=== PATIENT | female | born 1990 | race Caucasian/White ===

== ENCOUNTER 2021-06-20 09:07 | Outpatient (REF) | payer OTHER, SELFPAY ==
[2021-06-20 11:52] LABS: Hematocrit 40.2 % (37.0-47.0); Hemoglobin 13.6 g/dl (12.0-16.0); Mean Corpuscular HGB Conc 33.8 g/dl (31.0-35.0); Mean Corpuscular Hemoglobin 32.4 pg (27.0-33.0); Mean Corpuscular Volume 95.7 fL (80.0-98.0); Mean Platelet Volume 10.6 fL (9.4-12.3); Platelet Count 264 X10*3/uL (160-400); Red Cell Distribution Width 11.5 % (11.0-16.0); White Blood Count 6.2 X10*3/uL (4.8-10.8)
[2021-06-20 12:19] LABS: Alanine Aminotransferase 15 U/L (0-31); Alkaline Phosphatase 49 U/L (39-117); Anion Gap 11 (12-20); Aspartate Amino Transferase 19 U/L (5-31); Bilirubin Total 0.5 mg/dL (0.0-1.0); Blood Urea Nitrogen 12 mg/dL (9-16); Calcium 9.1 mg/dL (8.4-10.2); Carbon Dioxide 25 mmol/L (22-29); Chloride 107 mmol/L (96-108); Cholesterol 194 mg/dL; Estimated Glomerular Filt Rate > 60; Glucose Fasting 86 mg/dL (60-99); HDL Cholesterol 65 mg/dL; LDL Cholesterol Calculated 120 mg/dl; Sodium 139 mmol/L (135-145); Total Protein 6.7 g/dL (6.5-8.0); Triglycerides 47 mg/dL
[2021-06-20 12:24] LABS: TSH reflex Free T4 2.02 uIU/mL (0.32-4.0)
== END 2021-06-20 09:08 | disposition home or self-care (01) ==
LOC: HO.WFDLDS 09:07
PROVIDERS: Visit Provider Hospitalist
DX: Z00.00 Encounter for general adult medical examination without abnormal findings (principal)
CPT/HCPCS: 36415; 80053; 80061; 84443; 85027

== ENCOUNTER 2021-12-02 13:23 | Outpatient (REF) | payer OTHER, SELFPAY | END 2021-12-02 13:24 | disposition home or self-care (01) | LOC: HO.LNP 13:23 | PROVIDERS: Visit Provider Nurse Practitioner Family | DX: N39.0 Urinary tract infection, site not specified (principal) | CPT/HCPCS: 87086 ==

== ENCOUNTER 2022-07-10 08:38 | Outpatient (REF) | payer OTHER, SELFPAY ==
[2022-07-10 13:00] LABS: Cholesterol 235 mg/dL; HDL Cholesterol 54 mg/dL; LDL Cholesterol Calculated 166 mg/dl; Triglycerides 78 mg/dL
== END 2022-07-10 08:39 | disposition home or self-care (01) ==
LOC: HO.WFDLDS 08:38
PROVIDERS: Visit Provider Hospitalist
DX: Z00.00 Encounter for general adult medical examination without abnormal findings (principal)
CPT/HCPCS: 36415; 80061

== ENCOUNTER 2023-08-25 15:34 | Outpatient (AMB) | payer OTHER, SELFPAY ==
[2023-08-25 15:36] VITALS: BP 112/70; PULSE 84; O2SAT 98; BMI 27.6
--- NOTE | 2023-08-25 15:36 | A.OFFPC_ITS ---
Vital Signs 08/25/23 15:36 Height 5 ft 1 in Weight 146 lb BMI 27.6 BP 112/70 Blood Pressure Location Lt brachial Position Sitting Pulse 84 Pulse Source Pulse Oximeter Pulse Oximetry (%) 98 Oxygen Delivery Method Room Air Intake Visit Reasons: Annual PE / Transfer Of Care Annia Duncan Intake Note: Patient is here for her physical today. Patient states she is concerned about hormone changes, due to rash on her face for 6 months. Allergies No Known Allergies Allergy (Verified 08/25/23 15:40) Tobacco use date assessed: 08/25/23 Dental Screening Dental Screen Date: 08/25/23 Did you have a dental visit in the last 12 months?: Yes Did you have a dental problem in the last 6 months where you did not have access to dental care?: No Was dental information given to patient?: Patient has dentist HPI Annual PE / Transfer Of Care Annia Duncan HPI Details Transfer of Care Prior PCP:? Last office visit/CPE: Acute issue(s): Acne affected?by?hormonal?cycles PMHx: HLD, Uterine polyps & AUB - now s/p hysterectomy SurgHx: Hysterectomy. FHx: Dad: Brain Cancer. Mom: Unknown. Grandmother: Diabetes SocHx: Nonsmoker. EtOH none. MJ none. No drugs. Gets plenty of exercise - walks the dog frequently. [facility] Surgical History H/O: hysterectomy History of breast implant Family History Father Cancer Social History Housing: House Patient Tobacco Use Status: Never used Tobacco e-Cigarette/Vaping Use: Never Used Current occupational status: employed Cognitive needs: No Hearing needs: No Vision needs: No Questionnaire PHQ-9 Over the last 2 weeks, how often have you been bothered by any of the following problems? 1. Little interest or pleasure in doing things: not at all 2. Feeling down, depressed, or hopeless: not at all 3. Trouble falling or staying asleep, or sleeping too much: not at all 4. Feeling tired or having little energy: not at all 5. Poor appetite or overeating: not at all 6. Feeling bad about yourself - or that you are a failure or have let yourself or your family down: not at all 7. Trouble concentrating on things, such as reading the newspaper or watching television: not at all 8. Moving or speaking so slowly that other people could have noticed. Or the opposite - being so fidgety or restless that you have been moving around a lot more than usual: not at all 9. Thoughts that you would be better off or of hurting yourself in some way: not at all Total score: 0 Depression Screening Interpretation: Negative Depression Screening Done: Yes 55509 - PHQ-9 Billing: Yes Source: Developed by Drs. Piotr Demarco, Tere Choi, Dustin Maher and colleagues, with an educational laura from [employer] Thrive Questionnaire Date Thrive assessed: 08/25/23 I am a: Patient What is your living situation today?: I have a steady place to live Within the past 12 months, did the food you bought not last and you didn't have the money to get more?: Never true Within the past 12 months, did you worry whether your food would run out before you got money to buy more?: Never true Do you have trouble paying for medicines?: No Do you have trouble getting transportation to medical appointments?: No Do you have trouble paying your heating and electricity bill?: No Do you have trouble taking care of your child, family member or friend?: No Do you have trouble with day-to-day activities such as bathing, preparing meals, shopping, managing finances, etc.?: No Are you currently unemployed and looking for a job?: No Are you interested in more education?: Yes THRIVE Score: 0 AUDIT C Alcohol Use Questionnaire (AUDIT-C) 1. How often do you have a drink containing alcohol?: Never 3. How often do you have six or more drinks on one occasion?: Never Total Score: 0 CAMPOS-7 AMB Questionnaire CAMPOS-7 Date CAMPOS - 7 assessed: 08/25/23 Feeling nervous, anxious, or on edge: 0 = Not at all Not being able to stop or control worryin = Not at all Worrying too much about different things: 0 = Not at all Trouble relaxin = Not at all Being so restless that it is hard to sit still: 0 = Not at all Becoming easily annoyed or irritable: 0 = Not at all Feeling afraid as if something awful might happen: 0 = Not at all Total CAMPOS-7 score (0-4 normal; 5-9 mild; 10-14 moderate; 15-21 severe): 0 Source: Developed by Drs. Piotr Demarco, Tere Choi, Dustin Maher and colleagues, with an educational laura from [employer] CAMPOS-7 Assessment Billing CAMPOS-7 Assessment Tool: CAMPOS-7 Assessment 57733 Review of Systems Const Denies chills, Denies fatigue, Denies fever(s), Denies headache(s) and Denies weakness Eyes Denies change in vision ENT Denies dizziness, Denies headache(s), Denies hearing loss, Denies nasal congestion, Denies sinus pain, Denies sinus pressure and Denies sore throat Card Denies chest pain, Denies lightheadedness, Denies dyspnea and Denies other (palpitations) Resp Denies cough, Denies dyspnea and Denies wheezing GI Denies abdominal pain, Denies melena, Denies hematochezia, Denies change in bowel habits, Denies dyspepsia and Denies nausea Denies hematuria and Denies dysuria Musc Denies abnormal gait, Denies myalgias, Denies arthralgias, Denies numbness and Denies tingling Skin/Breast Denies rash, Denies unusual bruising and Denies wounds Neuro Denies abnormal gait, Denies dizziness, Denies headache(s), Denies memory loss, Denies numbness, Denies Sensory deficit (Neuro), Denies tingling and Denies weakness Psych Denies anxiety, Denies depression and Denies memory loss Endo Denies cold intolerance, Denies fatigue, Denies heat intolerance, Denies polydipsia and Denies polyuria Fabian/Lymph Denies easy bleeding and Denies easy bruising Aller/Immun Denies wheezing Physical exam (Primary Care) Vital Signs: Last Vital Signs Pulse 84 08/25/23 15:36 BP 112/70 08/25/23 15:36 Pulse Ox 98 08/25/23 15:36 Oxygen Delivery Method Room Air 08/25/23 15:36 BMI result Body Mass Index 27.6 Tobacco/Smoking Status: Tobacco use Status Tobacco use date assessed 08/25/23 08/25/23 15:48 Patient Tobacco Use Status Never used Tobacco 08/25/23 15:48 e-Cigarette/Vaping Use Never Used 08/25/23 15:48 PHQ-9: PHQ-9 Score PHQ-9: Total score 0 08/25/23 15:52 Depression Screening Interpretation: Negative Thrive Assessment: Date of Thrive Assessment Date Thrive assessed 08/25/23 08/25/23 15:48 Const General: no acute distress, well developed, alert and awake Nutritional Appearance: well nourished Orientation/consciousness: patient oriented x3 HENMT Head: Yes normocephalic and Yes atraumatic Ears: hearing grossly normal bilaterally and TM's normal bilaterally General nose exam: Normal external nose present and Normal nares present Mouth: Normal oral and palatal mucosa present and moist mucous membranes Teeth and gingiva: dentition normal Throat: Yes posterior oropharynx normal Eyes General: appearance normal, both eyes and all related structures Pupils: Equal, round and reactive pupils present and Pupil accommodation reflex normal EOM: EOMs intact bilaterally Neck Neck: Yes normal visual inspection, Yes no lymphadenopathy and Yes trachea midline Thyroid: Thyroid normal Carotids: no bruits Lymphatic: no lymphadenopathy noted Chest Chest palpation & inspection: normal inspection of the chest Resp Effort & Inspection: normal respiratory effort Auscultation: clear to auscultation bilaterally Cardio Rate: regular rate Rhythm: regular rhythm Heart sounds: S1 normal heart sound present, S2 normal heart sound present, no gallops, no murmurs and no rubs Bruits: no abdominal aortic bruits and no carotid bruits GI Palpation (GI): No Abdominal aortic bruit present, Soft to palpation, nontender, No hepatosplenomegaly present and No Rebound tenderness present Auscultation: normal bowel sounds General: Yes no CVA tenderness Back/Spine/Pelvis Back: no CVA tenderness Cervical Spine: cervical ROM normal and No Cervical spine tenderness Thoracic/Lumbar Spine: thoraco-lumbar ROM normal, No pain with thoraco-lumbar ROM, No thoracic spinal tenderness and No lumbar spinal tenderness Skin Lesions: no lesions Rashes: no rashes Trauma: no lacerations or abrasions Wounds: no wounds Nails: normal Neuro General: patient oriented x3 Cranial nerves: Yes Equal, round and reactive pupils present Cognition (Neuro): normal cognition Gait exam (Neuro): Normal gait present Motor exam (neuro): 5/5 motor strength present throughout Sensory Exam: No Sensory deficit (Neuro) Deep tendon reflexes (DTR's): Right patellar reflex intensity grade: 2+ and Left patellar reflex intensity grade: 2+ Extrem General: Yes normal to inspection and No edema Psych Appearance: grossly normal Affect: normal affect Attitude: cooperative Thought process: Normal thought process present Assessment and Plan Assessment & Plan (1) Adult general medical exam: Code(s): Z00.00 - Encounter for general adult medical examination without abnormal f indings Plan: 33-year-old?female?presents?as?transfer?from?[facility]?for?complete?physical?exam Encouraged?healthy?diet?with?active?lifestyle?and?plenty?of?exercise (2) Acne: Code(s): L70.9 - Acne, unspecified Plan: Moderately?severe?cystic?acne She?has?an?appointment?with?dermatology?but?it?is?still?months?out She?has?tried?cleaned?gel She?does?note?that?acne?worsens?with?her?menstrual?cycle?and?she?was?wondering?a bout?spironolactone. T his?may?be?a?good?option?although?she?has?had?a?low?blood?pressure?at?a?prior?vi sit.??Usually?blood?pressures?are?okay. Will?try?Differin Could?consider?spironolactone?in?the?future.??However?she?is?g oing?to?be?seen?dermatology?and?she?can?also?discuss?treatment?options?with?Derm (3) High cholesterol: Code(s): E78.00 - Pure hypercholesterolemia, unspecified Plan: History?of?hyperlipidemia?and?she?is?taking?atorvastatin Continue?statin?and?check?lipid (4) H/O: hysterectomy: Code(s): Z90.710 - Acquired absence of both cervix and uterus Plan: Still?has?ovaries Stable Orders: Orders Complete Blood Count Auto Diff Today Z00.00 - Encounter for general adult medical examination without abnormal findings Microalbumin, Random (w Creat) Today I10 - Essential (primary) hypertension Comprehensive [place]. Panel Fast Today Z00.00 - Encounter for general adult medical examination without abnormal findings Lipid Panel Today Z00.00 - Encounter for general adult medical examination without abnormal findings TSH reflex Free T4 Today Z00.00 - Encounter for general adult medical examination without abnormal findings UA and rflx microscopic Today Z00.00 - Encounter for general adult medical examination without abnormal findings Medications: New adapalene 0.1% (Differin) 1 appl topical BEDTIME 30 days 45 grams 2RF Coding Level of Care Code Est Pt Level 3 (43698) Est Pt Prev Care 18-39y(10513) Diagnoses Adult general medical exam Z00.00 Acne L70.9 High cholesterol E78.00 H/O: hysterectomy Z90.710 Additional Codes CAMPOS-7 Assessment Billing - CAMPOS-7 Assessment Tool: CAMPOS-7 Assessment 67068 ([id number])
== END 2023-08-25 16:22 | disposition home or self-care (01) ==
PROVIDERS: PCP Family Medicine; Visit Provider Family Medicine
DX: Z00.00 Encounter for general adult medical examination without abnormal findings (principal); L70.9 Acne, unspecified; E78.00 Pure hypercholesterolemia, unspecified; Z90.710 Acquired absence of both cervix and uterus
CPT/HCPCS: 99213; 99395

== ENCOUNTER 2023-08-30 08:28 | Outpatient (REF) | payer OTHER, SELFPAY ==
[2023-08-30 11:20] LABS: MANUAL DIFF FLAG NO
[2023-08-30 11:30] LABS: Basophils Percent Auto 0.4 % (0-2); Eosinophils Absolute Auto 0.1 X10*3/uL (0.0-0.4); Hematocrit 39.5 % (37.0-47.0); Hemoglobin 13.2 g/dl (12.0-16.0); Imm Gran Abs Auto 0.02 X10*3/uL (0.00-0.03); Imm Gran Pct Auto 0.4 % (0.0-0.4); Lymphocytes Absolute Auto 1.7 X10*3/uL (1.2-4.9); Lymphocytes Percent Auto 33.9 % (20-40); Mean Corpuscular HGB Conc 33.4 g/dl (31.0-35.0); Mean Corpuscular Hemoglobin 32.4 pg (27.0-33.0); Mean Corpuscular Volume 96.8 fL (80.0-98.0); Mean Platelet Volume 10.7 fL (9.4-12.3); Monocytes Absolute Auto 0.4 X10*3/uL (0.1-1.2); Monocytes Percent Auto 8.5 % (2-11); Neutrophils Absolute Auto 2.8 x10*3/uL (2.0-8.3); Neutrophils Percent Auto 55.8 % (45-73); Platelet Count 277 X10*3/uL (160-400); Red Blood Count 4.08 X10*6/uL (4.20-5.50)
[2023-08-30 12:15] LABS: Appearance Urine Clear; Color Urine Dark Yellow; Glucose Urine UA Negative (Negative); Leukocyte Esterase Urine Negative (Negative); Nitrite Urine Negative (Negative); PH 5.5 (5.0-9.0); Urine Blood Negative (Negative); Urine Ketones Negative (Negative); Urine Protein Negative (Neg-Trace)
[2023-08-30 12:50] LABS: Creatinine Urine 196.02 mg/dL; Microalbum/Creatinine Ratio Ur 3.5 ug/mg cr (<30)
[2023-08-30 13:10] LABS: Alanine Aminotransferase 22 U/L (0-31); Alkaline Phosphatase 50 U/L (39-117); Anion Gap 8 (12-20); Aspartate Amino Transferase 21 U/L (5-31); Bilirubin Total 0.5 mg/dL (0.0-1.0); Blood Urea Nitrogen 11 mg/dL (9-16); Carbon Dioxide 28 mmol/L (22-29); Chloride 106 mmol/L (96-108); Cholesterol 136 mg/dL (<200); Estimated Glomerular Filt Rate > 60; Glucose Fasting 85 mg/dL (60-99); HDL Cholesterol 53 mg/dL (>40); LDL Cholesterol Calculated 74 mg/dL (<100); Potassium 3.7 mmol/L (3.3-5.1); Sodium 138 mmol/L (135-145); Total Protein 6.7 g/dL (6.5-8.0); Triglycerides 46 mg/dL (<150)
[2023-08-30 13:31] LABS: TSH reflex Free T4 1.07 uIU/mL (0.32-4.0)
[2023-09-02 08:49] LABS: TS Negative Control Passed; TS Panel A 0; TS Panel B 0; TS Positive Control Passed; TSpotTB Negative (Negative)
== END 2023-08-30 08:29 | disposition home or self-care (01) ==
LOC: HO.WFDLDS 08:28
PROVIDERS: Visit Provider Family Medicine
DX: Z00.00 Encounter for general adult medical examination without abnormal findings (principal); Z11.1 Encounter for screening for respiratory tuberculosis; I10 Essential (primary) hypertension
CPT/HCPCS: 36415; 80053; 80061; 81003; 82043; 82570; 84443; 85025; 86481

== ENCOUNTER → 2023-09-16 13:25 | Outpatient (AMB) | payer OTHER, SELFPAY ==
--- NOTE | 2023-09-16 13:20 | MHC.PC.OV ---
Intake Visit Reasons: f/u CPE-labs via telemedicine Allergies No Known Allergies Allergy (Verified 09/16/23 13:21) Tobacco use date assessed: 09/16/23 Dental Screening Dental Screen Date: 08/25/23 HPI f/u CPE-labs via telemedicine HPI Details 33 y/o female presents to f/u CPE-labs via telemedicine. Labs were drawn 08/30/23. Reviewed labs with pt. Triglycerides 46. TC 136. LDL 74. HDL 53. PFSH Surgical History (Reviewed 09/16/23 @ 13:23 by Maria Luisa Harrison [facility]) History of breast implant H/O: hysterectomy Family History Father Cancer Social History Housing: House Patient Tobacco Use Status: Never used Tobacco e-Cigarette/Vaping Use: Never Used Current occupational status: employed Cognitive needs: No Hearing needs: No Vision needs: No Questionnaire Thrive Questionnaire Date Thrive assessed: 08/25/23 CAMPOS-7 AMB Questionnaire CAMPOS-7 Date CAMPOS - 7 assessed: 08/25/23 Source: Developed by Drs. Piotr Demarco, Tere Choi, Dustin Maher and colleagues, with an educational laura from [employer]. Review of Systems Const Denies chills, Denies fatigue, Denies fever(s), Denies headache(s) and Denies weakness ENT Denies dizziness and Denies headache(s) Card Denies dyspnea Resp Denies cough, Denies dyspnea, Denies wheezing and Denies other (shortness of breath) Musc Denies numbness and Denies tingling Neuro Denies dizziness, Denies headache(s), Denies numbness, Denies tingling and Denies weakness Psych Denies anxiety and Denies depression Endo Denies fatigue Aller/Immun Denies wheezing Physical exam (Primary Care) Tobacco/Smoking Status: Tobacco use Status Tobacco use date assessed 09/16/23 09/16/23 13:22 Patient Tobacco Use Status Never used Tobacco 09/16/23 13:22 e-Cigarette/Vaping Use Never Used 09/16/23 13:22 Thrive Assessment: Date of Thrive Assessment Date Thrive assessed 08/25/23 09/16/23 13:22 Telehealth Telehealth Telehealth Platform: Telephone Location of provider rendering services: practice address Location of patient: address on file Patient Identification confirmed using: Name, : Yes Telehealth method: voice only Patient verbally consented to treatment: Yes Patient verbally consented to billing insurance company: Yes Patient informed of any privacy concerns related to visit: Yes Minutes spent on Phone/Video with Pt.: 6 Assessment and Plan Assessment & Plan (1) High cholesterol: Code(s): E78.00 - Pure hypercholesterolemia, unspecified Plan: Cholesterol?significantly?improved?on?atorvastatin. Lipids?all?with?in?normal?range She?will?continue?atorvastatin (2) Screening for cervical cancer: Code(s): Z12.4 - Encounter for screening for malignant neoplasm of cervix Plan: Patient?gets?Pap?smears?at?[facility]. Pap?smear?last?year?and?normal.??Up-to-date Will?request?report (3) Acne: Code(s): L70.9 - Acne, unspecified Plan Medication?was?sent?at?last?visit?but?patient?says?she?has?not?received?this.??I?have?resent?it?and?she?can?let?me?know?if?she?is?unable?to?get?it. Medications: Refilled adapalene 0.1% (Differin) 1 appl topical BEDTIME 30 days 45 grams 2RF Coding Level of Care Code Tele Est Pt Level 2 (86648) Diagnoses High cholesterol E78.00 Screening for cervical cancer Z12.4 Acne L70.9
== END ==
PROVIDERS: PCP Family Medicine; Visit Provider Family Medicine
DX: E78.00 Pure hypercholesterolemia, unspecified (principal); L70.9 Acne, unspecified
CPT/HCPCS: 99212

== ENCOUNTER 2024-08-28 08:42 | Outpatient (AMB) | payer OTHER, SELFPAY ==
--- NOTE | 2024-08-28 09:07 | A.OFFPC_ITS ---
Vital Signs 08/28/24 09:09 Height 5 ft 1 in Weight 146 lb BMI 27.6 BP 112/62 Blood Pressure Location Lt brachial Position Sitting Respiration 14 Pulse 80 Pulse Source Pulse Oximeter Temp 98.2 F Temp Source Oral Pulse Oximetry (%) 100 Oxygen Delivery Method Room Air Intake Visit Reasons: CPE Intake Note: Patient is scheduled for a CPE Allergies No Known Allergies Allergy (Verified 09/16/23 13:21) Medication List - Last Reconciled 08/28/24 by Wilbur Jones MD adapalene 0.1% (Differin) 1 appl topical BEDTIME 30 days atorvastatin 20 mg PO BEDTIME Tobacco use date assessed: 09/16/23 Dental Screening Dental Screen Date: 08/25/23 HPI CPE HPI Details 34 y/o female presents for a CPE with f/ u labs and health maintenance. No recent labs to review. She is on artovastatin 20mg. [facility] Surgical History History of breast implant H/O: hysterectomy Family History Father Cancer Social History Housing: House Patient Tobacco Use Status: Never used Tobacco e-Cigarette/Vaping Use: Never Used Current occupational status: employed Cognitive needs: No Hearing needs: No Vision needs: No Questionnaire PHQ-9 Over the last 2 weeks, how often have you been bothered by any of the following problems? 1. Little interest or pleasure in doing things: not at all 2. Feeling down, depressed, or hopeless: not at all 3. Trouble falling or staying asleep, or sleeping too much: several days 4. Feeling tired or having little energy: several days 5. Poor appetite or overeating: not at all 6. Feeling bad about yourself - or that you are a failure or have let yourself or your family down: not at all 7. Trouble concentrating on things, such as reading the newspaper or watching television: not at all 8. Moving or speaking so slowly that other people could have noticed. Or the opposite - being so fidgety or restless that you have been moving around a lot more than usual: not at all 9. Thoughts that you would be better off or of hurting yourself in some way: not at all Total score: 2 Depression Screening Interpretation: Negative Depression Screening Done: Yes [id number] - PHQ-9 Billing: Yes Source: Developed by Drs. Piotr Demarco, Tere Choi, Dustin Maher and colleagues, with an educational laura from [employer]. Thrive Questionnaire Date Thrive assessed: 08/28/24 I am a: Patient What is your living situation today?: I have a steady place to live Within the past 12 months, did the food you bought not last and you didn't have the money to get more?: I choose not to answer this question Within the past 12 months, did you worry whether your food would run out before you got money to buy more?: I choose not to answer this question Do you have trouble paying for medicines?: No Do you have trouble getting transportation to medical appointments?: No Do you have trouble paying your heating and electricity bill?: No Do you have trouble taking care of your child, family member or friend?: No Do you have trouble with day-to-day activities such as bathing, preparing meals, shopping, managing finances, etc.?: No Are you currently unemployed and looking for a job?: No Are you interested in more education?: Yes Please select the resources that you would like help with: None Currently or been in a relationship where the following occur: No concerns reported THRIVE Score: 0 AUDIT C Alcohol Use Questionnaire (AUDIT-C) 1. How often do you have a drink containing alcohol?: Monthly or less 2. How many drinks containing alcohol do you have on a typical day when you are drinking?: 1 or 2 3. How often do you have six or more drinks on one occasion?: Never Total Score: 1 Score Reviewed/Action Taken: Yes CAMPOS-7 AMB Questionnaire CAMPOS-7 Date CAMPOS - 7 assessed: 08/28/24 Feeling nervous, anxious, or on edge: 0 = Not at all Not being able to stop or control worryin = Not at all Worrying too much about different things: 0 = Not at all Trouble relaxin = Not at all Being so restless that it is hard to sit still: 1 = Several days Becoming easily annoyed or irritable: 0 = Not at all Feeling afraid as if something awful might happen: 0 = Not at all Total CAMPOS-7 score (0-4 normal; 5-9 mild; 10-14 moderate; 15-21 severe): 1 Source: Developed by Drs. Piotr Demarco, Tere Choi, Dustin Maher and colleagues, with an educational laura from [employer]. CAMPOS-7 Assessment Billing CAMPOS-7 Assessment Tool: CAMPOS-7 Assessment 23576 Review of Systems Const Denies chills, Denies fatigue, Denies fever(s), Denies headache(s) and Denies weakness Eyes Denies change in vision ENT Denies dizziness, Denies headache(s), Denies hearing loss, Denies nasal congestion, Denies sinus pain, Denies sinus pressure and Denies sore throat Card Denies chest pain, Denies lightheadedness, Denies dyspnea and Denies other (p alpitations) Resp Denies cough, Denies dyspnea and Denies wheezing GI Denies abdominal pain, Denies melena, Denies hematochezia, Denies change in chip l habits, Denies dyspepsia and Denies nausea Denies hematuria and Denies dysuria Musc Denies abnormal gait, Denies myalgias, Denies arthralgias, Denies numbness and Denies tingling Skin/Breast Denies rash, Denies unusual bruising and Denies wounds Neuro Denies abnormal gait, Denies dizziness, Denies headache(s), Denies memory loss, Denies numbness, Denies Sensory deficit (Neuro), Denies tingling and Denies weakness Psych Denies anxiety, Denies depression and Denies memory loss Endo Denies cold intolerance, Denies fatigue, Denies heat intolerance, Denies polydipsia and Denies polyuria Fabian/Lymph Denies easy bleeding and Denies easy bruising Aller/Immun Denies wheezing Physical exam (Primary Care) Vital Signs: Last Vital Signs Temp 98.2 F 08/28/24 09:09 Pulse 80 08/28/24 09:09 Resp 14 08/28/24 09:09 BP 112/62 08/28/24 09:09 Pulse Ox 100 08/28/24 09:09 Oxygen Delivery Method Room Air 08/28/24 09:09 BMI result Body Mass Index 27.6 Tobacco/Smoking Status: Tobacco use Status Tobacco use date assessed 09/16/23 08/28/24 09:11 Patient Tobacco Use Status Never used Tobacco 08/28/24 09:11 e-Cigarette/Vaping Use Never Used 08/28/24 09:11 PHQ-9: PHQ-9 Score PHQ-9: Total score 2 08/28/24 09:11 Depression Screening Interpretation: Negative Thrive Assessment: Date of Thrive Assessment Date Thrive assessed 08/28/24 08/28/24 09:11 Currently or been in a relationship where the following occur: No concerns reported Const General: no acute distress, well developed, alert and awake Nutritional Appearance: well nourished Orientation/consciousness: patient oriented x3 HENMT Head: Yes normocephalic and Yes atraumatic Ears: hearing grossly normal bilaterally and TM's normal bilaterally General nose exam: Normal external nose present and Normal nares present Mouth: Normal oral and palatal mucosa present and moist mucous membranes Teeth and gingiva: dentition normal Throat: Yes posterior oropharynx normal Eyes General: appearance normal, both eyes and all related structures Pupils: Equal, round and reactive pupils present and Pupil accommodation reflex normal EOM: EOMs intact bilaterally Neck Neck: Yes normal visual inspection, Yes no lymphadenopathy and Yes trachea midline Thyroid: Thyroid normal Carotids: no bruits Lymphatic: no lymphadenopathy noted Chest Chest palpation & inspection: normal inspection of the chest Resp Effort & Inspection: normal respiratory effort Auscultation: clear to auscultation bilaterally Cardio Rate: regular rate Rhythm: regular rhythm Heart sounds: S1 normal heart sound present, S2 normal heart sound present, no gallops, no murmurs and no rubs Bruits: no abdominal aortic bruits and no carotid bruits GI Palpation (GI): No Abdominal aortic bruit present, Soft to palpation, nontender, No hepatosplenomegaly present and No Rebound tenderness present Auscultation: normal bowel sounds General: Yes no CVA tenderness Back/Spine/Pelvis Back: no CVA tenderness Cervical Spine: cervical ROM normal and No Cervical spine tenderness Thoracic/Lumbar Spine: thoraco-lumbar ROM normal, No pain with thoraco-lumbar ROM, No thoracic spinal tenderness and No lumbar spinal tenderness Skin Lesions: no lesions Rashes: no rashes Trauma: no lacerations or abrasions Wounds: no wounds Nails: normal Neuro General: patient oriented x3 Cranial nerves: Yes Equal, round and reactive pupils present Cognition (Neuro): normal cognition Gait exam (Neuro): Normal gait present Motor exam (neuro): 5/5 motor strength present throughout Sensory Exam: No Sensory deficit (Neuro) Deep tendon reflexes (DTR's): Right patellar reflex intensity grade: 2+ and Left patellar reflex intensity grade: 2+ Extrem General: Yes normal to inspection and No edema Psych Appearance: grossly normal Affect: normal affect Attitude: cooperative Thought process: Normal thought process present Coding Level of Care Code Est Pt Level 3 (41251) Est Pt Prev Care 18-39y(96812) Diagnoses Adult general medical exam Z00.00 High cholesterol E78.00 Screening for cervical cancer Z12.4 Heartburn R12 Constipation K59.00 Lightheadedness R42 Additional Codes CAMPOS-7 Assessment Billing - CAMPOS-7 Assessment Tool: CAMPOS-7 Assessment 76117 ([id number]) PHQ-9 - 20468 - PHQ-9 Billing: Yes ([id number]) Assessment & Plan Assessment & Plan (1) Adult general medical exam: Code(s): Z00.00 - Encounter for general adult medical examination without abnormal findings Category: Medical Plan: 34-year-old?female?presents?for?complete?physical?exam Encouraged?healthy?diet?with?active?lifestyle?and?plenty?of?exercise (2) High cholesterol: Code(s): E78.00 - Pure hypercholesterolemia, unspecified Category: Medical Plan: Cholesterol?is?controlled?on?statin Continue?medication?as?prescribed (3) Screening for cervical cancer: Code(s): Z12.4 - Encounter for screening for malignant neoplasm of cervix Category: Medical Plan: Patient?says?she?had?a?Pap?smear?this?past?month?at?[facility] Will?request?report (4) Heartburn: Code(s): R12 - Heartburn Category: Medical Plan: Complaints?of?frequent?heartburn?and?reflux. Avoid?trigger?foods Avoid?over?filling?and?eating?too?close?to?bedtime H?pylori?test Trial?famotidine?at?bedtime Referred?to?GI (5) Constipation: Code(s): K59.00 - Constipation, unspecified Category: Medical Plan: Increase?hydration Soluble?fiber No?if?not?improving (6) Lightheadedness: Code(s): R42 - Dizziness and giddiness Category: Medical Plan: Patient?notes?some?lightheadedness Cardiovascular?exam?today?is?within?limits She?also?notes?that?she?has?been??trying?to do?less?exercise because?she?says?she?feels?tired?after?work. Encouraged?her?to?increase?exercise?to?3?times?per?day. Hydrate?well He?does?not?have?high?blood?pressure?and?can?increase?salt/sodium?in?diet.? She?will?let?me?know?if?worsening?or?not?improving. Orders: Orders Comprehensive Milo. Panel Fast 08/25/24 Z00.00 - Encounter for general adult medical examination without abnormal findings Lipid Panel 08/25/24 Z00. - Encounter for general adult medical examination without abnormal findings Complete Blood Count Auto Diff 08/25/24 Z00. - Encounter for general adult medical examination without abnormal findings Microalbumin, Random (w Creat) 08/25/24 I10 - Essential (primary) hypertension TSH reflex Free T4 08/25/24 Z00.00 - Encounter for general adult medical examination without abnormal findings UA CC w/rflx Micro + Cult 08/25/24 Z00.00 - Encounter for general adult medical examination without abnormal findings H pylori Ag Stool Today R12 - Heartburn Referrals Gastroenterology Referral R12 - Heartburn Medications: New famotidine 20 mg PO BEDTIME 30 days 30 tabs 2RF
[2024-08-28 09:09] VITALS: BP 112/62; PULSE 80; RESP 14; TEMP 36.8; O2SAT 100; BMI 27.6
== END 2024-08-28 09:37 | disposition home or self-care (01) ==
LOC: HO.HMCFM 08:43
PROVIDERS: PCP Family Medicine; Visit Provider Family Medicine
DX: Z00.00 Encounter for general adult medical examination without abnormal findings (principal); E78.00 Pure hypercholesterolemia, unspecified; R12 Heartburn; K59.00 Constipation, unspecified; R42 Dizziness and giddiness

== ENCOUNTER → 2024-08-28 08:42 | Outpatient (BNVA) | payer OTHER, SELFPAY | PROVIDERS: PCP Family Medicine; Visit Provider Family Medicine | DX: Z00.00 Encounter for general adult medical examination without abnormal findings (principal); E78.00 Pure hypercholesterolemia, unspecified; R12 Heartburn; K59.00 Constipation, unspecified; R42 Dizziness and giddiness; I10 Essential (primary) hypertension; Z79.899 Other long term (current) drug therapy | CPT/HCPCS: 96127; 99212; 99395 ==

== ENCOUNTER 2024-08-28 11:26 | Outpatient (REF) | payer OTHER, SELFPAY | END 2024-08-28 11:27 | disposition home or self-care (01) | LOC: HO.LNP 11:26 | PROVIDERS: Visit Provider Family Medicine | DX: R12 Heartburn (principal) | CPT/HCPCS: 87338 ==

== ENCOUNTER 2024-08-29 08:35 | Outpatient (REF) | payer OTHER, SELFPAY ==
[2024-08-29 11:30] LABS: MANUAL DIFF FLAG NO
[2024-08-29 11:37] LABS: Appearance Urine Clear; Color Urine Yellow; Glucose Urine UA Negative (Negative); Leukocyte Esterase Urine Negative (Negative); Nitrite Urine Negative (Negative); Specific Gravity - Urine 1.015 (1.005-1.025); Urine Blood Negative (Negative); Urine Ketones Negative (Negative); Urine Protein Negative (Neg-Trace)
[2024-08-29 11:44] LABS: Basophils Percent Auto 0.3 % (0-2); Eosinophils Percent Auto 0.5 % (0-4); Hematocrit 39.5 % (37.0-47.0); Hemoglobin 13.3 g/dl (12.0-16.0); Imm Gran Abs Auto 0.01 X10*3/uL (0.00-0.03); Imm Gran Pct Auto 0.2 % (0.0-0.4); Lymphocytes Absolute Auto 1.8 X10*3/uL (1.2-4.9); Lymphocytes Percent Auto 28.9 % (20-40); Mean Corpuscular HGB Conc 33.7 g/dl (31.0-35.0); Mean Corpuscular Hemoglobin 32.8 pg (27.0-33.0); Mean Corpuscular Volume 97.5 fL (80.0-98.0); Mean Platelet Volume 10.9 fL (9.4-12.3); Monocytes Absolute Auto 0.6 X10*3/uL (0.1-1.2); Neutrophils Absolute Auto 3.7 x10*3/uL (2.0-8.3); Neutrophils Percent Auto 61.1 % (45-73); Platelet Count 219 X10*3/uL (160-400); Red Blood Count 4.05 X10*6/uL (4.20-5.50); Red Cell Distribution Width 11.9 % (11.0-16.0); White Blood Count 6.1 X10*3/uL (4.8-10.8)
[2024-08-29 11:58] LABS: Alanine Aminotransferase 19 U/L (0-31); Alkaline Phosphatase 48 U/L (39-117); Anion Gap 9 (12-20); Aspartate Amino Transferase 25 U/L (5-31); Bilirubin Total 0.3 mg/dL (0.0-1.0); Blood Urea Nitrogen 11 mg/dL (9-16); Calcium 8.5 mg/dL (8.4-10.2); Carbon Dioxide 26 mmol/L (22-29); Chloride 108 mmol/L (96-108); Cholesterol 143 mg/dL (<200); Estimated Glomerular Filt Rate > 60; Glucose Fasting 82 mg/dL (60-99); HDL Cholesterol 66 mg/dL (>40); LDL Cholesterol Calculated 71 mg/dL (<100); Sodium 139 mmol/L (135-145); Total Protein 6.6 g/dL (6.5-8.0); Triglycerides 33 mg/dL (<150)
[2024-08-29 12:14] LABS: Creatinine Urine 113.98 mg/dL; Microalbumin Urine < 5.0 mg/L
[2024-08-29 12:17] LABS: TSH reflex Free T4 1.32 uIU/mL (0.32-4.0)
== END 2024-08-29 08:36 | disposition home or self-care (01) ==
LOC: HO.WFDLDS 08:35
PROVIDERS: Visit Provider Family Medicine
DX: Z00.00 Encounter for general adult medical examination without abnormal findings (principal); I10 Essential (primary) hypertension
CPT/HCPCS: 36415; 80053; 80061; 81003; 82043; 82570; 84443; 85025

== ENCOUNTER 2024-09-28 10:33 | Outpatient (AMB) | payer OTHER, SELFPAY ==
--- NOTE | 2024-09-28 10:29 | A.OFFPC_ITS ---
Intake Visit Reasons: f/u CPE-labs via telemedicine Intake Note: patient is scheduled to review labs Cloud Automation Tester Required: No Allergies No Known Allergies Allergy (Verified 09/28/24 10:29) Tobacco use date assessed: 09/16/23 Dental Screening Dental Screen Date: 08/25/23 HPI f/u CPE-labs via telemedicine HPI Details 34 y/o female presents to f/u CPE-labs v ia telemedicine. Labs drawn 08/29/24. Reviewed labs with pt. Triglycerides 33. TC 143. LDL 71. HDL 66. She is on artovastatin 20mg. TSH 1.32. Ongoing h.pylori infection. Has an appt. with GI in January. PFSH Surgical History History of breast implant H/O: hysterectomy Family History Father Cancer Social History Housing: House Patient Tobacco Use Status: Never used Tobacco e-Cigarette/Vaping Use: Never Used Current occupational status: employed Cognitive needs: No Hearing needs: No Vision needs: No Questionnaire Thrive Questionnaire Date Thrive assessed: 08/28/24 CAMPOS-7 AMB Questionnaire CAMPOS-7 Date CAMPOS - 7 assessed: 08/28/24 Source: Developed by Drs. Piotr Demarco, Tere Choi, Dustin Maher and colleagues, with an educational laura from [employer]. Review of Systems Const Denies chills, Denies fatigue, Denies fever(s), Denies headache(s) and Denies weakness ENT Denies dizziness and Denies headache(s) Card Denies dyspnea Resp Denies cough, Denies dyspnea, Denies wheezing and Denies other (shortness of breath) Musc Denies numbness and Denies tingling Neuro Denies dizziness, Denies headache(s), Denies numbness, Denies tingling and Denies weakness Psych Denies anxiety and Denies depression Endo Denies fatigue Aller/Immun Denies wheezing Physical exam (Primary Care) Tobacco/Smoking Status: Tobacco use Status Tobacco use date assessed 09/16/23 09/28/24 10:32 Patient Tobacco Use Status Never used Tobacco 09/28/24 10:32 e-Cigarette/Vaping Use Never Used 09/28/24 10:32 Thrive Assessment: Date of Thrive Assessment Date Thrive assessed 08/28/24 09/28/24 10:32 Telehealth Telehealth Telehealth Platform: Telephone Location of provider rendering services: practice address Location of patient: address on file Patient Identification confirmed using: Name, : Yes Telehealth method: voice only Patient verbally consented to treatment: Yes Patient verbally consented to billing insurance company: Yes Patient informed of any privacy concerns related to visit: Yes Minutes spent on Phone/Video with Pt.: 6 Coding Level of Care Code Tele Est Pt Level 2 (88177) Diagnoses High cholesterol E78.00 GERD (gastroesophageal reflux disease) K21.9 H. pylori infection A04.8 Assessment & Plan Assessment & Plan (1) High cholesterol: Code(s): E78.00 - Pure hypercholesterolemia, unspecified Category: Medical Plan: cholesterol is well controlled on atorvastatin continue current medication (2) GERD (gastroesophageal reflux disease): Code(s): K21.9 - Gastro-esophageal reflux disease without esophagitis Category: Medical (3) H. pylori infection: Code(s): A04.8 - Other specified bacterial intestinal infections Category: Medical Plan ongoing GERD and H pylori infection. Continue famotidine will also send a script for omeprazole Insurance did not cover the combo pack for H pylori infection will send script for the individual medications she has an appointment with Dr. Giang in January.
== END 2024-09-28 17:05 | disposition home or self-care (01) ==
LOC: HO.HMCFM 10:33
PROVIDERS: PCP Family Medicine; Visit Provider Family Medicine
DX: E78.00 Pure hypercholesterolemia, unspecified (principal); K21.9 Gastro-esophageal reflux disease without esophagitis; A04.8 Other specified bacterial intestinal infections

== ENCOUNTER → 2024-09-28 10:33 | Outpatient (BNVA) | payer OTHER, SELFPAY | PROVIDERS: PCP Family Medicine; Visit Provider Family Medicine | DX: Z13.89 Encounter for screening for other disorder (principal) ==

== ENCOUNTER 2024-10-10 08:57 | Outpatient (AMB) | payer OTHER, SELFPAY ==
--- NOTE | 2024-10-10 08:59 | AM.OFFWIN_ITS ---
Intake Vital Signs 10/10/24 09:01 10/10/24 09:08 Weight 146 lb BP 118/80 112/78 Blood Pressure Location Lt brachial Lt brachial Position Sitting Sitting Pulse 88 Pulse Source Pulse Oximeter Pulse Oximetry (%) 98 Oxygen Delivery Method Room Air Intake Visit Reasons: EP High BP, headache, palpitation ~ New med Intake Note: Patient here for elevated BP, headache and palpitations that started last night. she states she was recently put on antibiotics and sicne then has been having an issue. Patient Tobacco Use Status: Never used Tobacco Allergies No Known Allergies Allergy (Verified 10/10/24 09:01) HPI HPI Comments History of Present Illness Details History of Present Illness - The patient is a 34-year-old female pr esenting with a follow-up for Helicobacter pylori treatment. - The Helicobacter pylori infection was diagnosed via laboratory tests following a regular physical exam, leading to a prescribed treatment. - [facility] including Omeprazole, Tetracycline, Metronidazole, and Bismuth subsalicylate. - The patient reported side effects such as mild dizziness, headaches, and palpitations, which emerged shortly after beginning treatment. - The intended therapy duration is set a s 10 to 14 days, with a 7-day adherence by this visit. - The patient noted alleviated symptoms related to Helicobacter pylori but expressed difficulty managing side effects, considering potential therapy adjustment. Physical Exam General: Cooperative, healthy appearing, comfortable, no acute distress and well developed Orientation: Patient oriented x3 Limitations: No limitations Head: Normal to inspection Ears: Hearing grossly normal bilaterally Nose: Normal External nose present Face and sinus: Normal facial exam Eyes: Appearance normal, both eyes and all related structures Neck: Normal visual inspection and Yes full ROM Respiratory: Normal respiratory effort and able to speak in complete sentences. Skin: No rashes or lesions noted Neuro: Patient oriented x3 Extremities: Normal to inspection PFSH Surgical History History of breast implant H/O: hysterectomy Family History Father Cancer Social History Housing: House Patient Tobacco Use Status: Never used Tobacco e-Cigarette/Vaping Use: Never Used Current occupational status: employed Cognitive needs: No Hearing needs: No Vision needs: No Review of Systems Const All systems reviewed & are unremarkable except as noted in HPI and below Physical Exam Vital Signs: Last Vital Signs Pulse 55 10/10/24 09:01 BP 112/78 10/10/24 09:08 Pulse Ox 98 10/10/24 09:01 Oxygen Delivery Method Room Air 10/10/24 09:01 Assessment & Plan Assessment & Plan (1) H. pylori infection: Code(s): A04.8 - Other specified bacterial intestinal infections Plan: Plan - Discussed tolerating the regimen for anther 3 days and she decided she is going to try to tolerate the side effects for another 3 days. Continue with the current Helicobacter pylori four-drug regimen for a total of 10 days, including Omeprazole, Tetracycline, Metronidazole, and Bismuth, assessing tolerability and effectiveness. - Consider regimen shift to Rifabutin and Amoxicillin if current therapy becomes intolerable though she will need to take this regimen for another 7 days, with side effect management as a priority. - Educate patient on identifying and reporting any severe adverse effects or intolerable symptoms. - Facilitation of communication through a patient portal is emphasized for ongoing management and potential treatment adjustments. Patient was informed and verbally consented to the use of an ambient scribe for clinic note documentation during this visit. Coding Level of Care Code Est Pt Level 3 (47797) Diagnoses H. pylori infection A04.8
[2024-10-10 09:01] VITALS: BP 118/80; PULSE 88; O2SAT 98
[2024-10-10 09:08] VITALS: BP 112/78
== END 2024-10-10 09:25 | disposition home or self-care (01) ==
PROVIDERS: PCP Family Medicine; Visit Provider Physician Assistant
DX: A04.8 Other specified bacterial intestinal infections (principal)

== ENCOUNTER → 2024-10-10 08:57 | Outpatient (BNVA) | payer OTHER, SELFPAY | PROVIDERS: PCP Family Medicine; Visit Provider Physician Assistant | DX: A04.8 Other specified bacterial intestinal infections (principal) | CPT/HCPCS: 99212 ==

== ENCOUNTER 2024-10-24 08:09 | Outpatient (AMB) | payer OTHER, SELFPAY ==
--- NOTE | 2024-10-24 08:16 | AM.OFFWIN_ITS ---
Intake Vital Signs 10/24/24 08:17 Height 5 ft 1 in Weight 151 lb 4 oz BMI 28.6 BP 106/70 Blood Pressure Location Lt brachial Position Sitting Pulse 84 Pulse Source Pulse Oximeter Temp 103.0 F H Temp Source Oral Pulse Oximetry (%) 99 Oxygen Delivery Method Room Air Intake Visit Reasons: EP-sore throat, ear/body pain, fever Intake Note: Patient present with sore throat and body aches times 2days Patient Tobacco Use Status: Never used Tobacco Rat Culturist Required: No Allergies No Known Allergies Allergy (Verified 10/24/24 08:21) Do you need a note to return to daycare/school/sports/work: Yes HPI HPI Comments History of Present Illness Details History - The patient is a 34-year-old female pr esenting with fever and sore throat. - Fever began on Wednesday afternoon, reach ing 102.9?F last night and 103?F this morning. - She has a sore throat and ear pain, wi th no associated cough or phlegm. - She has pain when she swallows. - Reports dizziness but denies sinus lisbeth n, vomiting, or nasal discharge. - No improvement with [id number] c old and flu medication. - Has been taking Tylenol every 4 hours and then her fever returns. - She has no sick contacts. She has no r ecent travel. - She denies abd pain, n/v/d, CP, or SOB . Physical Exam General: Cooperative, healthy appearing, comfortable and no acute distress Orientation/consciousness: Patient oriented x3 Head: Normal to inspection. Ears: Hearing grossly normal bilaterally, external ears normal, no erythema noted. TMs normal bilaterally Nose: Normal external nose present, normal nares present, no nasal discharge present Face and sinus: Sinuses nontender to palpation, no sinus pain or pressure reported Mouth: Normal oral and palatal mucosa present and moist mucous membranes noted Throat: Tonsils normal. Uvula is midline. Posterior oropharynx with erythema and no exudates noted. Eyes: Appearance normal, both eyes and all related structures Neck: Normal visual inspection, full ROM. No lymphadenopathy noted Respiratory: Clear to auscultation bilaterally. Normal respiratory effort, able to speak in complete sentences. No respiratory distress, not tachypneic, no tripod positioning and no use of accessory muscles Cardiovascular: Regular rate and rhythm. Normal S1 and S2 Skin: No rashes or lesions noted Patient was informed and verbally consented to the use of an ambient scribe for clinic note documentation during this visit [facility] Surgical History History of breast implant H/O: hysterectomy Family History Father Cancer Social History Housing: House Patient Tobacco Use Status: Never used Tobacco e-Cigarette/Vaping Use: Never Used Current occupational status: employed Cognitive needs: No Hearing needs: No Vision needs: No Review of Systems Const All systems reviewed & are unremarkable except as noted in HPI and below Physical Exam Vital Signs: Last Vital Signs Temp 103.0 F H 10/24/24 08:17 Pulse 84 10/24/24 08:17 BP 106/70 10/24/24 08:17 Pulse Ox 99 10/24/24 08:17 Oxygen Delivery Method Room Air 10/24/24 08:17 BMI result Body Mass Index 28.6 Results AMB Rapid Strep AMB Rapid Strep Negative Last Edit by Kody Hicks CMA on 10/24/24 08 :45 Results Reviewed Results Reviewed: Laboratory Last Values Strep Scn Rapid Clinic Negative 10/24/24 08:44 Assessment & Plan Assessment & Plan (1) Fever: Code(s): R50.9 - Fever, unspecified Qualifiers: Fever type: unspecified Qualified Code(s): R50.9 - Fever, unspecified Plan Most likely URI vs covid vs flu vs strep vs viral illness Rapid strep in the office negative today Plan - Perform rapid strep test to rule out streptococcal pharyngitis. - Will order a throat culture due to rapid being negative - Tylenol or Motrin given in the office due to fever - Conduct tests for COVID-19, influenza, and RSV to identify viral causes. - Consider symptomatic treatment for fever and sore throat, including antipyretics and analgesics. - Drink lots of fluids - Will call with results - work note given Orders: Orders SARS-CoV2/FLU/RSV Today R09.89 - Other specified symptoms and signs involving the circulatory and respiratory systems Throat Culture Today J02.9 - Acute pharyngitis, unspecified AMB Ibuprofen Adult Dose Today R50.9 - Fever, unspecified AMB Rapid Strep Screen Today Z13.9 - Encounter for screening, unspecified AMB Acetaminophen Adult Dose Today R50.9 - Fever, unspecified Medications: New acetaminophen 650 mg (2 x 325 mg) PO ONCE 2 tabs 0RF R50.9 - Fever, unspecified ibuprofen 600 mg (3 x 200 mg) PO ONCE 3 tabs 0RF R50.9 - Fever, unspecified Coding Level of Care Code Est Pt Level 4 (46167) Diagnoses Fever, unspecified fever cause R50.9 Fever type: unspecified
[2024-10-24 08:17] VITALS: BP 106/70; PULSE 84; TEMP 39.4; O2SAT 99; BMI 28.6
== END 2024-10-24 09:12 | disposition home or self-care (01) ==
PROVIDERS: PCP Family Medicine; Visit Provider Physician Assistant Medical
DX: R50.9 Fever, unspecified (principal); J02.9 Acute pharyngitis, unspecified

== ENCOUNTER → 2024-10-24 08:09 | Outpatient (BNVA) | payer OTHER, SELFPAY | PROVIDERS: PCP Family Medicine; Visit Provider Physician Assistant Medical | DX: R05.9 Cough, unspecified (principal) | CPT/HCPCS: 87880; 99212 ==

== ENCOUNTER 2024-10-24 10:25 | Outpatient (REF) | payer OTHER, SELFPAY ==
[2024-10-24 11:21] LABS: Influenza A PCR POSITIVE (Negative); Influenza B PCR NEGATIVE (Negative); Resp Syncy Virus RNA Qual PCR NEGATIVE (Negative); SARS COV2 PCR INHOUSE NEGATIVE (Negative)
== END 2024-10-24 10:26 | disposition home or self-care (01) ==
LOC: HO.LNP 10:25
PROVIDERS: Visit Provider Physician Assistant Medical
DX: R09.89 Other specified symptoms and signs involving the circulatory and respiratory systems (principal); J02.9 Acute pharyngitis, unspecified
CPT/HCPCS: 0241U; 87070

== ENCOUNTER 2025-04-06 11:28 | Outpatient (AMB) | payer OTHER, SELFPAY ==
[2025-04-06 11:31] VITALS: BP 116/73; PULSE 65; O2SAT 98; BMI 27.0
--- NOTE | 2025-04-06 11:31 | MHC.OFFVIS ---
Vital Signs 04/06/25 11:31 Height 5 ft 1 in Weight 143 lb BMI 27.0 BP 116/73 Blood Pressure Location Lt brachial Position Sitting Pulse 65 Pulse Oximetry (%) 98 Oxygen Delivery Method Room Air Intake Visit Reasons: gerd Intake Note: Patient new consult for GERD Patient cc: acid reflux and her acid dont let her sleep, constipation with bloody and hard stool, abdominal pain with bloating with lindsey food. 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 Referred by PCP for further evaluation of pyrosis. Patient presents with complaints of heartburn persisting since October following treatment for Helicobacter pylori infection with quadruple therapy. While symptoms initially improved, they did not resolve completely and continue episodically, with notable exacerbation following intake of trigger foods such as fried foods, sauces, red foods, and meats. She describes the discomfort as a burning sensation that occurs within minutes of eating offending foods, occasionally radiating upward, but denies regurgitation or dysphagia. Relief is reported with strict dietary modifications?currently consuming a bland diet, favoring salmon?with ongoing need for acid-reducing agents, including famotidine at night and intermittent omeprazole. Patient notes unintentional weight loss of approximately 8 lbs over seven months, attributed to dietary restriction due to GI symptoms. Chronic constipation has worsened since last year, with bowel movements now occurring every other day, associated with straining and mary-anal discomfort during cleaning; occasional rectal bleeding is noted with wiping but no mena hematochezia. Stool softeners and polyethylene glycol (Miralax) provide partial relief, though stools remain hard initially. No history of significant appetite loss; reports abdominal pain in the epigastric region when hungry or after large meals. No history of significant comorbid conditions reported except hyperlipidemia, managed with atorvastatin; no known allergies; relevant infectious, endocrine, and metabolic investigations from earlier this year are unremarkable/week Patient denies: fever/chills, vomiting, regurgitation, dysphasia. Social hx: -ETOH use Rare (<1x/mo), discontinued due to GI intolerance -denies recreational drug use -non-smoker - family hx as below -denies personal hx of CA -denies significant cardiopulmonary history -tolerated anesthesia in the past without difficulty. [facility] Medical History (Updated 04/06/25 @ 12:38 by Luiza Celsi CNP) Weight loss Epigastric pain Surgical History History of breast implant H/O: hysterectomy Family History Father Cancer Social History Housing: House Patient Tobacco Use Status: Never used Tobacco e-Cigarette/Vaping Use: Never Used Current occupational status: employed Cognitive needs: No Hearing needs: No Vision needs: No Review of Systems Const Reports as per HPI ENT Reports as per HPI Card Reports as per HPI Resp Reports as per HPI GI Reports as per HPI Reports as per HPI Physical Exam Vital Signs: Last Vital Signs Pulse 65 04/06/25 11:31 BP 116/73 04/06/25 11:31 Pulse Ox 98 04/06/25 11:31 Oxygen Delivery Method Room Air 04/06/25 11:31 BMI result Body Mass Index 27.0 Const General: healthy appearing, no acute distress and well developed Nutritional Appearance: average body habitus Orientation/consciousness: patient oriented x3 HEENT Head: Yes normal to inspection, Yes normocephalic and Yes atraumatic Face and sinus: Yes normal facial exam Eyes General: appearance normal, both eyes and all related structures Neck Neck: Yes normal visual inspection Resp Effort & Inspection: normal respiratory effort, able to speak in complete sentences, no tracheal deviation and symmetric chest movement Cardio Jugular venous distension: no JVD GI Inspection: Yes normal to inspection and No distended Palpation (GI): Soft to palpation, not firm, nontender and No hepatosplenomegaly present Auscultation: normal bowel sounds Rectal Exam - Female: deferred, visual inspection normal, normal sphincter tone, External hemorrhoid(s) present (tag only), No Internal hemorrhoid(s) present, No Rectal prolapse, No fecal impaction, No Lesions present (GI), No Anal fissure(s) present, No Laceration(s) present (GI), No Excoriation present (GI), No mass and No tenderness Neuro General: patient oriented x3 Gait exam (Neuro): Normal gait present Psych Appearance: grossly normal Mental Status: mental status grossly normal Speech and movement: Normal speech and movement present Affect: normal affect Attitude: cooperative Thought process: Normal thought process present Thought content: Normal thought content present Insight: Good insight present (Psych) Judgement: Good judgement present (Psych) Assessment & Plan Assessment & Plan (1) H. pylori infection: Code(s): A04.8 - Other specified bacterial intestinal infections Category: Medical Plan: Ongoing heartburn/burning sensation, partial improvement after H. pylori eradication therapy, relief with proton-pump inhibitor (PPI) and H2 nick, dietary triggers present Additional Testing: - H. pylori breath test today in office for eradication confirmation ( off PPI) - Upper GI series to assess esophagus, stomach, and proximal duodenum for anatomic abnormalities, inflammation, or ulcer - Plan for upper endoscopy if noninvasive tests reveal concerning findings or persistent symptoms. Order today to place in [place], can cancel if not indicated. Medication Management: - Omeprazole 40mg daily x 90 days (prescribed, can continue short-term until diagnostic clarity) - Famotidine qHS, prn, for breakthrough symptoms Lifestyle Recommendations: - Continue bland diet, avoid known triggers, eat small frequent meals, avoid lying down after meals, maintain hydration Follow-Up: - Reassess after completion of diagnostic testing (imaging + H. pylori test); portal communication as needed - Office follow-up after results and/or in 4?6 weeks (2) Constipation: Code(s): K59.00 - Constipation, unspecified Category: Medical Qualifiers: Constipation type: unspecified constipation type Qualified Code(s): K59.00 - Constipation, unspecified Plan: Progressive symptoms post-childbirth with recent worsening, hard stools, straining, and partial response to current OTC laxatives Additional Testing: - Monitor for new labs only if symptoms persist/worsen; no acute need given recent normal thyroid and metabolic panel Medication Management: - Docusate and polyethylene glycol (Miralax) daily as tolerated; titrate dose to stool consistency (goal: soft, formed stools) - Anal cream prescribed for hemorrhoidal irritation, to be applied as needed for symptom flares Lifestyle Recommendations: - Maximize fiber intake (vegetables), increase water intake, establish regular bowel habits, minimize straining/wiping irritation, avoid prolonged sitting on toilet Follow-Up: - Reassess symptoms at next visit, or sooner if constipation fails to improve; notify for changes in bowel frequency, blood per rectum, or worsening pain (3) Weight loss: Code(s): R63.4 - Abnormal weight loss Category: Medical Plan: >5% loss over 7 months with restriction attributed to GI symptoms/diet Additional Testing: - Chest X-ray to rule out pulmonary cause of weight loss - Abdominal ultrasound to assess gallbladder and hepatobiliary structures - Infectious disease panel: recent HIV, hepatitis A/C (Jan 2025), and syphilis negative (Jun 2024 ) per pt [facility] portal. Medication Management: - No changes unless new findings appear Lifestyle Recommendations: - Encourage gradual reintroduction of tolerated nutritious foods, regular hydration Follow-Up: - Review imaging and labs when available; discuss further intervention as indicated Plan Follow-up after imaging or sooner as needed Time: I spent a total of 45 minutes on the date of encounter which includes: Preparing to see the patient (reviewed previous documentation, test results and medical history) Performing a medically appropriate exam and/or evaluation Ordering medications, tests, and procedures Documenting clinical information in the health record Orders: Orders [place] upper GI small bowel Today A04.8 - Other specified bacterial intestinal infections, K21.9 - Gastro-esophageal reflux disease without esophagitis XR chest 2V Today R63.4 - Abnormal weight loss H Pylori Breath Test Today A04.8 - Other specified bacterial intestinal infections US abdomen complete Today K21.9 - Gastro-esophageal reflux disease without esophagitis, R10.13 - Epigastric pain Referrals GI Procedure Notification A04.8 - Other specified bacterial intestinal infections, K21.9 - Gastro-esophageal reflux disease without esophagitis, R10.13 - Epigastric pain Medications: New hydrocortisone 1% Apply sparingly, up to twice daily as needed 1 appl MA BID PRN 28.4 grams 2RF hemorrhoids omeprazole Take one tablet daily. Best taken 30 minutes before meal 40 mg PO DAILY 90 caps 1RF Coding Level of Care Code New Pt New Pt Level 4 (71191) Patient Type New Diagnoses H. pylori infection A04.8 Constipation, unspecified constipation type K59.00 Constipation type: unspecified constipation type Weight loss R63.4
== END 2025-04-06 12:50 | disposition home or self-care (01) ==
LOC: HO.HGI 11:29
PROVIDERS: PCP Family Medicine; Visit Provider Nurse Practitioner Family
DX: A04.8 Other specified bacterial intestinal infections (principal); K59.00 Constipation, unspecified; R63.4 Abnormal weight loss
CPT/HCPCS: 99204

== ENCOUNTER 2025-04-06 11:28 | Outpatient (REF) | payer OTHER, SELFPAY ==
--- NOTE | ~2025-04-06 | XR_ITS ---
EXAMINATION: XR CHEST CLINICAL INFORMATION: R63.4 - Abnormal weight loss COMPARISON: None available. TECHNIQUE: 2 views of the chest were obtained. FINDINGS: The cardiomediastinal silhouette is within normal limits. The lungs are well expanded. There is no focal consolidation, edema, or effusion. No pneumothorax. No acute osseous abnormality. Small metallic clip in bilateral breasts. XR/XR chest 2V IMPRESSION: No acute cardiopulmonary findings Electronically signed by: Rishi Churchill MD 04/06/2025 03:54 PM EST
== END 2025-04-06 11:29 | disposition home or self-care (01) ==
LOC: HO.XRAY 11:28
PROVIDERS: PCP Family Medicine; Visit Provider Nurse Practitioner Family
DX: A04.8 Other specified bacterial intestinal infections (principal); R10.13 Epigastric pain; R63.4 Abnormal weight loss; K59.00 Constipation, unspecified; K63.4 Enteroptosis
CPT/HCPCS: 71046; 83013; 99202

== ENCOUNTER 2025-04-11 08:51 | Outpatient (REF) | payer OTHER, SELFPAY ==
--- NOTE | ~2025-04-11 | FL_ITS ---
EXAMINATION: XR UPPER GI SERIES WITH SMALL BOWEL FOLLOW-THROUGH CLINICAL INFORMATION: 35-year-old female complaining of epigastric abdominal pain with eating, constant. Reflux type symptoms. COMPARISON: No prior. TECHNIQUE: Fluoroscopic air contrast upper GI examination was performed utilizing standard techniques with thin and thick barium and effervescent granules. Numerous spot images were obtained. Several fluoroscopic image hold cine sequences were also obtained. This was followed by small bowel follow-through utilizing standard techniques with multiple overhead radiographs. Biological Science Aide images obtained, followed by overhead radiographs obtained at 30 minutes, and 75 minutes. Upon opacification of the right hemicolon, multiple fluoroscopic spot images and cine loops were then obtained of the completely opacified small bowel. FINDINGS: UPPER GI SERIES: Lateral cine images of the oropharynx and hypopharynx demonstrate normal swallow mechanism with normal epiglottic inversion and soft palate elevation. No laryngeal penetration, glottic or subglottic aspiration identified. No nasopharyngeal reflux present. Hypopharyngeal structures appear normal without evidence of mass or diverticulum. There was no significant cricopharyngeal achalasia. Dual and single contrast images of the esophagus demonstrate normal caliber and contour. Normal course. No evidence of stricture, mass, or ulcerations identified. Very subtle granular mucosal pattern noted in the distal one third of the esophagus, suggesting esophagitis. Esophageal peristalsis was normal. No evidence of hiatus hernia identified. Spontaneous gastroesophageal reflux was noted to the level of the aortic arch. Dual contrast and single contrast images of the stomach demonstrated normal contour. No evidence of gross mass or ulceration. A few tiny mural filling defects are noted, suggestive of tiny hyperplastic polyps. Diffuse thickening of the areae gastricae noted. Numerous extremely subtle foci of contrast pooling present suggesting submucosal aphthous type ulcers. Overall findings suggest erosive gastritis. Contrast freely passed into the gastric antrum and duodenal bulb without delay. Single and air-contrast images of the duodenal bulb demonstrate no abnormality. The duodenal sweep has a normal appearance, course, and mucosal fold appearance. SMALL BOWEL SERIES: Biological Science Aide radiograph demonstrates normal/nonspecific bowel gas pattern. No focally dilated loop. No organomegaly. No large abdominal mass. No abnormal soft tissue calcifications. No bony abnormalities. After the oral administration of contrast, transit time was 75 minutes to the right colon. The jejunum and ileum demonstrate normal caliber, course, and mucosal patterns. Spot radiographs of the terminal ileum demonstrate no abnormalities. FLUOROSCOPY TIME: 3 minutes 45 seconds Number of Spot Images:16 Number of cines obtained: 18 Number of overhead images: 3 DOSE AREA PRODUCT: 316.1 dGy-m2 FL/FL upper GI w air w SBFT IMPRESSION: 1. Very subtle granular pattern in the distal one third of the esophagus, suspicious for mild esophagitis. 2. No evidence of hiatus hernia. 3. Spontaneous gastroesophageal reflux present the level of the aortic arch. 4. Findings of the stomach suggesting mild erosive gastritis. Consider correlation with EGD. 5. Normal duodenum and normal small bowel series. Electronically signed by: Henri Womack MD 04/11/2025 01:14 PM EST
== END 2025-04-11 08:52 | disposition home or self-care (01) ==
LOC: HO.XRAY 08:51
PROVIDERS: PCP Family Medicine; Visit Provider Nurse Practitioner Family
DX: K21.9 Gastro-esophageal reflux disease without esophagitis (principal); A04.8 Other specified bacterial intestinal infections
CPT/HCPCS: 74246; 74248

== ENCOUNTER → 2025-04-11 08:53 | Outpatient (BNV) | payer OTHER, SELFPAY | PROVIDERS: PCP Family Medicine; Visit Provider Radiology Diagnostic Radiology | DX: K21.9 Gastro-esophageal reflux disease without esophagitis (principal); R10.13 Epigastric pain | CPT/HCPCS: 74246; 74248 ==